=== PATIENT | female | born 1980 | race Caucasian/White ===

== ENCOUNTER 2021-06-20 07:51 | Day surgery (SDC) | payer OTHER ==
[~2021-06-20] VITALS: Ht 154.9 cm; Wt 52.2 kg
[2021-06-20] VITALS (7 sets, daily range): BP systolic 80–108; BP diastolic 43–69
--- NOTE | 2021-06-20 08:05 | NUR ---
pt arrived to [place] accompanied by Alli PERAZA in stable condition ambulatory.
--- NOTE | 2021-06-20 09:50 | NUR ---
RT AT BEDSIDE OBTAINING EKG
[2021-06-20 10:20] LABS: HEMATOCRIT 38.8 % (37.0-47.0); HEMOGLOBIN 12.7 g/dl (12.0-16.0); MEAN CELL VOLUME 96.3 fL CALC (80.0-100.0); MEAN CORPUSCULAR HGB 31.5 pG CALC (26.0-32.0); MEAN CORPUSCULAR HGB CONC 32.7 g/dL CAL (32.0-36.0); NEUT# 3.26 thou/uL (2.00-7.15); RED BLOOD COUNT 4.03 mill/uL (4.20-5.60); RED CELL DISTRI WIDTH 11.7 % (11.5-15.5)
[2021-06-20 10:39] LABS: ALBUMIN 3.9 g/dL (3.2-5.0); ALKALINE PHOSPHATASE 39 u/l (38-126); ANION GAP 11 (6-22 (CALC)); BILIRUBIN, TOTAL 0.5 mg/dL (0.0-1.4); BUN 16 mg/dL (7-17); BUN/CREATININE RATIO 22 (12-20 (CALC)); CARBON DIOXIDE 26 mmol/l (22-30); CHLORIDE 106 mmol/l (95-108); CREATININE 0.7 mg/dL (0.5-1.0); GFR > 60 ML/MIN (>=60 (CALC)); GFR FOR AFR.AMER. > 60 ML/MIN (>=60 (CALC)); POTASSIUM 4.4 mmol/l (3.5-5.1); SGOT/AST 20 u/l (14-36); SODIUM 139 mmol/l (137-146); TOTAL PROTEIN 6.7 g/dL (6.3-8.2)
--- NOTE | 2021-06-20 12:10 | NUR ---
DR MARTINS NOTIFIED OF NEW VS; NEW ORDERS OBTAINED. WRITTEN AND FAXED TO PHARMACY.
--- NOTE | 2021-06-20 12:41 | NUR ---
DANNI RT AT BEDSIDE TO COMPLETE BREATHING TX. PO CLONIDINE 0.1 MG GIVEN ALONG WITH PO PROTONIX. PT TOLERATED WELL. NO OTHER NEEDS AT THIS TIME. CALL LIGHT WITHIN REACH.
--- NOTE | 2021-06-20 13:27 | NUR ---
DR MARTINS AT BEDSIDE DISCUSSING POC
--- NOTE | 2021-06-20 13:43 | NUR ---
pt taken via bed for ANR procedure accompanied by this fiction writer and . Pt remains in stable condition
[2021-06-20] MEDS ORDERED: CLONIDINE0.1 MG PO (16:53)
[2021-06-20] MEDS ORDERED: KLONOPIN0.5 MG PO (16:54)
--- NOTE | 2021-06-20 17:19 | NUR ---
VERBAL ORDER OBTAINED FOR TRANSDERMAL PATCH; PATCH APPLIED BY JORDAN PERAZA. PT REMAINS IN ANR PRODECURE
--- NOTE | 2021-06-20 19:17 | NUR ---
PT ARRIVES TO UNIT VIA BED, ACCOMPANIED BY ANR STAFF: BRANT PERAZA AND JORDAN RN. PT WHEELED INTO 274. ATTATCHED TO MONITOR FOR POST-PROCEDURE FREQUENT VS MONITORING. BEDSIDE REPORT RECEIVED FROM BRANT PERAZA. PT APPEARS TO BE SLEEPING COMFORTABLY. NO APPARENT DISTRESS. RESPIRATIONS REGULAR AND UNLABORED. BED LOCKED IN LOW POSITION WITH BEDRAILS UP X2. CALL MCDONALD WITHIN REACH. BED ALARM ON.
[2021-06-20] MEDS ORDERED: NALTREXONE50 MG PO (20:11)
--- NOTE | 2021-06-21 00:10 | NUR ---
PT IS AWAKE, A/OX3, NOT DROWSY OR LETHARGIC. REQUESTING TO DRINK AND EAT. DRINKS AND FOOD PROVIDED.
--- NOTE | 2021-06-21 03:40 | NUR ---
Kiera FERRO AUTOMOTIVE ENGINEERING TECHNICIAN IN ROOM COLLECTING LABS.
[2021-06-21 04:00] VITALS: BP 85/51
[2021-06-21 04:43] LABS: ANION GAP 11 (6-22 (CALC)); BUN 12 mg/dL (7-17); BUN/CREATININE RATIO 16 (12-20 (CALC)); CARBON DIOXIDE 26 mmol/l (22-30); CHLORIDE 109 mmol/l (95-108); CREATININE 0.8 mg/dL (0.5-1.0); GFR > 60 ML/MIN (>=60 (CALC)); GFR FOR AFR.AMER. > 60 ML/MIN (>=60 (CALC)); MAGNESIUM 2.6 mg/dL (1.6-2.3); POTASSIUM 4.4 mmol/l (3.5-5.1); SODIUM 141 mmol/l (137-146)
--- NOTE | 2021-06-21 07:00 | NUR ---
REPORT RECEIVED FROM STU JIMENEZ
[2021-06-21 07:55] VITALS: BP 84/59
--- NOTE | 2021-06-21 07:55 | NUR ---
PT RESTING IN SEMI FOWLERS POSITION,A&O X3;VS OBTAINED AND ASSESSMENT COMPLETED;PT DENIES ANY CURRENT PAIN OR DISCOMFORTS,PAIN SCALE AND REPORTING EDUCATED;RESPIRATIONS EVEN AND UNLABORED ON RA,CLEAR LUNG SOUNDS;ABDOMEN SOFT ON PALPATION AND ACTIVE IN ALL 4 QUADRANTS;STRONG PEDAL PULSES;SKIN INTACT;#20G TO RW FLUSHED AND PATENT,SITE APPEARS HEALTHY;PT DENIES ANY ADDITIONAL NEEDS AND IS ENCOURAGED TO CALL FOR ASSISTANCE IF NEEDED;MEAL TRAY SET UP PROVIDED;FALL PRECAUTIONS IN PLACE WITH BED IN THE LOWEST POSITION AND BED ALARM ON FOR SAFETY;CALL LIGHT IN REACH;WILL CONTINUE TO MONITOR
--- NOTE | 2021-06-21 08:21 | NUR ---
PT BLOOD PRESSURE 84/59 HR 65. ORDERS TO HOLD MORNING CATAPRES OBTAINED BY AT THIS TIME.
[2021-06-21 08:29] VITALS: BP 84/59
--- NOTE | 2021-06-21 09:25 | NUR ---
PT ASSISTED WITH SHOWER AND ORAL CARE;PT TOLERATED WELL;RESPIRATIONS EVEN AND UNLABORED ON RA;PT DENIES ANY CURRENT PAIN OR NEEDS;IV SITE REMAINS PATENT;ENCOURAGED TO CALL FOR ASSISTANCE IF NEEDED;FALL PRECAUTIONS IN PLACE WITH BED IN THE LOWEST POSITION AND CALL LIGHT IN REACH;WILL CONTINUE TO MONITOR
--- NOTE | 2021-06-21 11:01 | NUR ---
IV SITE REMOVED WITH CATHETER INTACT.
--- NOTE | 2021-06-21 11:15 | NUR ---
ALL DISCHARGE INSTRUCTIONS PROVIDED AT THIS TIME;PT TO F/U WITH ANR OUTPATIENT AND TAKE MEDICATION PRESCRIBED.RX SENT TO PHARMACY;PT DENIES ANY ADDITIONAL QUESTIONS OR NEEDS;SPOUSE TO TRANSPORT PT HOME;CALL LIGHT IN REACH;WILL CONTINUE TO MONITOR
--- NOTE | 2021-06-21 12:40 | NUR ---
Discharge instructions given. Patient verbalizes understanding of same. Discharged in stable condition via Ambulatory to Home with spouse. All belongings sent with pt. PT TRANSPORTED TO [facility] ACCOMPANIED BY WRITTER IN STABLE CONDITION.ALL BELONGINGS LEFT WITH PT AT THIS TIME.SPOUSE TO TRANSPORT PT HOME.
== END 2021-06-21 12:40 | disposition home or self-care (01) | DRG 897 ==
LOC: ANR 07:51 → MS2 07:56 → ANR 06-21 12:40
PROVIDERS: ATTEND Anesthesiology
DX: F11.20 Opioid dependence, uncomplicated (principal)
CPT/HCPCS: J2060; J2354